=== PATIENT | male | born 1960 | race Caucasian/White ===

== ENCOUNTER 2021-03-04 12:30 | Outpatient (CLI) | payer OTHER ==
[~2021-03-04] VITALS: Ht 177.8 cm; Wt 108.9 kg
[~2021-03-04 12:30] MED LIST: ALBUTEROL 90 MCG/ACT 8GM HFA INHALER INH PRN; ALBUTEROL SULFATE 2.5 MG/0.5 ML INH NEB SOLN INH PRN; CASIRIVIMAB/IMDEVIMAB 1,200 MG in NS 250 ML IV ONE; EPINEPHrine INJ 1 MG/ML 1ML AMP IM PRN; NS 1,000 ML IV SCH; diphenhydrAMINE 50MG/ML VIAL (J1200) IV PRN; methylPREDNISolone 125MG 2ML VIAL IV PRN
[2021-03-04 13:19] VITALS: BP 137/78
[2021-03-04 13:49] VITALS: BP 119/59
[2021-03-04 14:19] VITALS: BP 145/66
[2021-03-04 15:19] VITALS: BP 149/85
== END 2021-03-04 15:19 | disposition home or self-care (01) ==
LOC: M OPCLI4PR 12:30
PROVIDERS: ATTEND Physician Assistant
DX: U07.1 COVID-19 (principal); Z88.1 Allergy status to other antibiotic agents